=== PATIENT | male | born 1950 | race American Indian/Alaskan Native ===

== ENCOUNTER 2016-06-26 11:57 | Emergency (ER) | payer MEDICAID ==
--- NOTE | 2016-06-26 13:46 | Emergency Department Report ---
ED Fall HPI - General Chief Complaint: Extremity Injury, Upper Stated Complaint: FELL OFF LADDER Time Seen by Provider: 06/26/16 13:18 Source: patient Mode of arrival: Wheelchair - History of Present Illness Initial Comments: Patient states he fell off a ladder 1 week ago and still having pain in bilateral hips and right shoulder. Patient denies loss of consciousness, dizziness, blurred vision, headache, paresthesia, nausea vomiting. Patient also relates he has been ambulatory the entire week and drove himself here today. Complaint: fall -: Sudden Place Fall Occurred: home Loss of Consciousness: none Prolonged Down Time?: no Symptoms Prior to Fall: none Location: buttocks Location - Extremities: Left: Thigh, Right: Shoulder, Thigh - Related Data Previous Rx's Medication Instructions Recorded Last Taken Type Famotidine [Pepcid] 20 mg PO QDAY #30 tablet 12/28/13 Unknown Rx Levofloxacin [Levaquin TAB] 500 mg PO Q24H #10 tablet 02/08/14 Unknown Rx Loratadine [Claritin] 10 mg PO QDAY #10 tablet 02/08/14 Unknown Rx oxyCODONE /ACETAMINOPHEN [Percocet 1 tab PO Q6H PRN #20 tablet 02/08/14 Unknown Rx 5/325 mg] Albuterol Sulfate [Ventolin HFA] 2 puff IH Q4H PRN #1 hfa.aer.ad 02/24/15 Unknown Rx Bacitracin Zinc Oint 1 applicatio TP TID #1 tube 02/24/15 Unknown Rx Codeine (Nf) 30 mg PO Q4H PRN #15 tablet 06/26/16 Unknown Rx Allergies Allergy/AdvReac Type Severity Reaction Status Date / Time Sulfa (Sulfonamide AdvReac Hives Verified 02/06/14 21:49 Antibiotics) ED Review of Systems ROS: Stated complaint: FELL OFF LADDER Other details as noted in HPI Constitutional: denies: chills, fever Eyes: denies: eye pain, eye discharge, vision change ENT: denies: ear pain, throat pain Respiratory: denies: cough, shortness of breath, wheezing Cardiovascular: denies: chest pain, palpitations Gastrointestinal: denies: abdominal pain, nausea, vomiting Musculoskeletal: arthralgia Skin: denies: rash, lesions Neurological: denies: headache, numbness, paresthesias, confusion, abnormal gait , vertigo ED Past Medical Hx - Past Medical History Additional medical history: "heart valve", various veins - Surgical History Additional Surgical History: angioplasty - Social History Smoking Status: Current Every Day Smoker Substance Use Type: Alcohol - Medications Home Medications: Home Medications Medication Instructions Recorded Confirmed Last Taken Type Famotidine [Pepcid] 20 mg PO QDAY #30 tablet 12/28/13 02/07/14 Unknown Rx Levofloxacin [Levaquin TAB] 500 mg PO Q24H #10 tablet 02/08/14 Unknown Rx Loratadine [Claritin] 10 mg PO QDAY #10 tablet 02/08/14 Unknown Rx oxyCODONE /ACETAMINOPHEN [Percocet 1 tab PO Q6H PRN #20 tablet 02/08/14 Unknown Rx 5/325 mg] Albuterol Sulfate [Ventolin HFA] 2 puff IH Q4H PRN #1 hfa.aer.ad 02/24/15 Unknown Rx Bacitracin Zinc Oint 1 applicatio TP TID #1 tube 02/24/15 Unknown Rx Codeine (Nf) 30 mg PO Q4H PRN #15 tablet 06/26/16 Unknown Rx ED Physical Exam - General Limitations: Physical Limitation General appearance: alert, in no apparent distress - Head Head exam: Present: atraumatic, normocephalic - Eye Eye exam: Present: normal appearance, PERRL, EOMI - ENT ENT exam: Present: mucous membranes moist - Neck Neck exam: Present: normal inspection, full ROM. Absent: tenderness, meningismus - Respiratory Respiratory exam: Absent: respiratory distress - Cardiovascular Cardiovascular Exam: Present: regular rate - GI/Abdominal GI/Abdominal exam: Present: soft. Absent: distended, tenderness, guarding, rebound, rigid - Expanded Upper Extremity Exam Right Shoulder Exam: Present: full ROM, tenderness. Absent: swelling Neurosensory exam: Present: 2-point discrimination Vascular: Present: normal capillary refill, radial pulse (strong). Absent: vascular compromise, pulse deficit brachial art - Expanded Lower Extremity Exam Left Hip exam: Present: full ROM, tenderness, pelvic stability. Absent: swelling, ecchymosis, deformity, crepidus, dislocation, external rotation, internal rotation, shortening Right Hip exam: Present: full ROM, tenderness, pelvic stability (stable). Absent: swelling, ecchymosis, deformity, crepidus, dislocation, external rotation, internal rotation, shortening Ankle exam: Present: normal inspection. Absent: swelling Neuro vascular tendon exam: Absent: pulse deficit, motor deficit, sensory deficit, pallor, decreased fine/light touch, foot drop Gait: Positive: antalgic - Neurological Exam Neurological exam: Present: alert, oriented X3, normal gait. Absent: altered ED Course Vital Signs 06/26/16 06/26/16 12:09 13:33 Temperature 98 F 98.5 F Pulse Rate 75 75 Respiratory 18 12 Rate Blood Pressure 120/67 Blood Pressure 114/70 [Left] O2 Sat by Pulse 100 97 Oximetry ED Medical Decision Making - Radiology Data Radiology results: pending Critical care attestation.: If time is entered above; I have spent that time in minutes in the direct care of this critically ill patient, excluding procedure time. ED Disposition Clinical Impression: Contusion, hip and thigh, Contusion of shoulder, right Disposition: DISCHARGED TO HOME OR SELFCARE Is pt being admited?: No Does the pt Need Aspirin: No Condition: Stable Instructions: Contusion in Adults (ED), Hip Sprain (ED) Prescriptions: Codeine (Nf) 30 mg PO Q4H PRN #15 tablet PRN Reason: Pain Referrals: PRIMARY CARE, [Primary Care Provider] - 3-5 Days JOHN COUGHLIN MD [Staff Physician] - 3-5 Days
[2016-06-26] MEDS ORDERED: NORCO 5/325 PO ONE (15:22)
--- NOTE | 2016-06-26 16:11 | XRay Report ---
FINAL REPORT EXAM: XR HIPS BILAT 2V W/PELVIS HISTORY: fall with bilateral hip pain TECHNIQUE: AP view of the pelvis and a single coned-down view of each hip. PRIORS: None. FINDINGS: No evidence for acute fracture or dislocation is seen. Joint spaces are maintained. The soft tissues are unremarkable. Bony mineralization is normal. IMPRESSION: No acute soft tissue or bony abnormality noted in the bilateral hips.
--- NOTE | 2016-06-26 16:14 | XRay Report ---
FINAL REPORT EXAM: XR SHOULDER 2 RT HISTORY: fall with pain in the right shoulder TECHNIQUE: AP, Y, and oblique views of the right shoulder PRIORS: None. FINDINGS: There is no evidence of acute fracture or dislocation. Joint spaces are maintained and bony mineralization is normal. Soft tissues are unremarkable. Small spur off the inferior aspect of the acromioclavicular joint is seen. IMPRESSION: No acute abnormality identified in the right shoulder.
[2016-06-26 17:12] VITALS: BP 116/74
== END 2016-06-26 15:32 | disposition home or self-care (01) ==
LOC: ED 11:57
DX: S70.02XA Contusion of left hip, initial encounter (principal); S70.01XA Contusion of right hip, initial encounter; S70.10XA Contusion of unspecified thigh, initial encounter; S40.011A Contusion of right shoulder, initial encounter; W11.XXXA Fall on and from ladder, initial encounter; Y93.9 Activity, unspecified; Y92.9 Unspecified place or not applicable; Y99.9 Unspecified external cause status; F17.200 Nicotine dependence, unspecified, uncomplicated
CPT/HCPCS: 73521

== ENCOUNTER 2016-08-22 13:10 | Emergency (ER) | payer MEDICAID ==
[2016-08-22 13:47] VITALS: BP 113/72
--- NOTE | 2016-08-22 15:23 | Emergency Department Report ---
ED General Adult HPI - General Chief complaint: Pain General Stated complaint: BODY PAINS Time Seen by Provider: 08/22/16 15:22 Source: patient Mode of arrival: Ambulatory Limitations: No Limitations - History of Present Illness Initial comments: pt complaining of chronic bilateral hip and shoulder pain. Patient states his been going on for years and has gotten a lot worse in the past couple of months. Patient denies fever, chills, chest pain, shortness of breath, or syncope. -: Gradual, month(s) Location: upper extremity, lower extremity Severity scale (0 -10): 5 Improves with: none Worsens with: movement Associated Symptoms: denies other symptoms. denies: chest pain, cough, diaphoresis, fever/chills, malaise, nausea/vomiting, rash - Related Data Previous Rx's Medication Instructions Recorded Last Taken Type Famotidine [Pepcid] 20 mg PO QDAY #30 tablet 12/28/13 Unknown Rx Levofloxacin [Levaquin TAB] 500 mg PO Q24H #10 tablet 02/08/14 Unknown Rx Loratadine [Claritin] 10 mg PO QDAY #10 tablet 02/08/14 Unknown Rx oxyCODONE /ACETAMINOPHEN [Percocet 1 tab PO Q6H PRN #20 tablet 02/08/14 Unknown Rx 5/325 mg] Albuterol Sulfate [Ventolin HFA] 2 puff IH Q4H PRN #1 hfa.aer.ad 02/24/15 Unknown Rx Bacitracin Zinc Oint 1 applicatio TP TID #1 tube 02/24/15 Unknown Rx Codeine (Nf) 30 mg PO Q4H PRN #15 tablet 06/26/16 Unknown Rx Prednisone [predniSONE 10 mg 10 mg PO .TAPER #1 tab.ds.pk 08/22/16 Unknown Rx (6-Day Pack, 21 Tabs)] Allergies Allergy/AdvReac Type Severity Reaction Status Date / Time Sulfa (Sulfonamide AdvReac Hives Verified 02/06/14 21:49 Antibiotics) ED Review of Systems ROS: Stated complaint: BODY PAINS Other details as noted in HPI Constitutional: see HPI. denies: chills, fever, malaise Eyes: eye pain, vision change ENT: denies: throat pain Respiratory: denies: cough, orthopnea, shortness of breath, SOB with exertion, SOB at rest, wheezing Cardiovascular: denies: chest pain, palpitations, dyspnea on exertion, orthopnea , edema, syncope Gastrointestinal: denies: abdominal pain, nausea, vomiting, diarrhea, constipation Musculoskeletal: back pain, arthralgia, myalgia. denies: joint swelling Skin: denies: rash, lesions Neurological: denies: headache, weakness, numbness, paresthesias, confusion, abnormal gait, vertigo ED Past Medical Hx - Past Medical History Previous Medical History?: Yes Additional medical history: "heart valve", various veins, bodyaches, CAD - Surgical History Past Surgical History?: Yes Additional Surgical History: angioplasty - Social History Smoking Status: Current Every Day Smoker Substance Use Type: Alcohol, Prescribed - Medications Home Medications: Home Medications Medication Instructions Recorded Confirmed Last Taken Type Famotidine [Pepcid] 20 mg PO QDAY #30 tablet 12/28/13 02/07/14 Unknown Rx Levofloxacin [Levaquin TAB] 500 mg PO Q24H #10 tablet 02/08/14 Unknown Rx Loratadine [Claritin] 10 mg PO QDAY #10 tablet 02/08/14 Unknown Rx oxyCODONE /ACETAMINOPHEN [Percocet 1 tab PO Q6H PRN #20 tablet 02/08/14 Unknown Rx 5/325 mg] Albuterol Sulfate [Ventolin HFA] 2 puff IH Q4H PRN #1 hfa.aer.ad 02/24/15 Unknown Rx Bacitracin Zinc Oint 1 applicatio TP TID #1 tube 02/24/15 Unknown Rx Codeine (Nf) 30 mg PO Q4H PRN #15 tablet 06/26/16 Unknown Rx Prednisone [predniSONE 10 mg 10 mg PO .TAPER #1 tab.ds.pk 08/22/16 Unknown Rx (6-Day Pack, 21 Tabs)] ED Physical Exam - General Limitations: No Limitations General appearance: alert, in no apparent distress - Eye Eye exam: Present: normal appearance, PERRL, EOMI - ENT ENT exam: Present: normal exam, mucous membranes dry - Neck Neck exam: Present: normal inspection, full ROM. Absent: tenderness, meningismus, lymphadenopathy - Respiratory Respiratory exam: Present: normal lung sounds bilaterally. Absent: respiratory distress - Cardiovascular Cardiovascular Exam: Present: regular rate - GI/Abdominal GI/Abdominal exam: Present: soft. Absent: distended, tenderness, guarding - Extremities Exam Extremities exam: Present: tenderness, normal capillary refill, other (she is moving all extremities 4 with good neurovascular motor distal to area of pain, brisk cap refill in all extremities equal pulses in all extremities. No warmth , swelling, erythema, or deformity noted.). Absent: pedal edema, joint swelling , calf tenderness - Back Exam Back exam: Present: vertebral tenderness. Absent: CVA tenderness (R), CVA tenderness (L), paraspinal tenderness - Neurological Exam Neurological exam: Present: alert, oriented X3, CN II-XII intact - Skin Skin exam: Present: warm, dry, intact ED Course Vital Signs 08/22/16 13:42 Temperature 98.4 F Pulse Rate 87 Respiratory 18 Rate Blood Pressure 113/72 O2 Sat by Pulse 97 Oximetry - Reevaluation(s) Reevaluation #1: 08/22/16 15:45 Patient still resting comfortably normotensive normal heart rate. Discussed at length the patient that he is going to need follow-up outside of the ER there are various types of arthritis could be causing his polyarthralgia. Patient agreed with me and states he is just gotten a doctor and has an appointment to follow-up already. Critical care attestation.: If time is entered above; I have spent that time in minutes in the direct care of this critically ill patient, excluding procedure time. ED Disposition Clinical Impression: Polyarthralgia Disposition: DISCHARGED TO HOME OR SELFCARE Is pt being admited?: No Condition: Stable Instructions: Arthralgia (ED) Prescriptions: Prednisone [predniSONE 10 mg (6-Day Pack, 21 Tabs)] 10 mg PO .TAPER #1 tab.zackery Referrals: PRIMARY CARE, [Primary Care Provider] - 3-5 Days
[2016-08-22] MEDS ORDERED: TORADOL IM ONE (15:38)
== END 2016-08-22 16:01 | disposition home or self-care (01) ==
LOC: ED 13:10
DX: M25.551 Pain in right hip (principal); M25.552 Pain in left hip; M25.511 Pain in right shoulder; M25.512 Pain in left shoulder; F17.200 Nicotine dependence, unspecified, uncomplicated
CPT/HCPCS: 96372; 99282; J1885

== ENCOUNTER 2016-08-30 15:25 | Emergency (ER) | payer MEDICARE ==
[2016-08-30 16:13] LABS: Hematocrit 43.3 % (35.5-45.6); Hemoglobin 14.3 gm/dl (11.8-15.2); Mean Corpuscular HGB Conc 33 % (32-34); Mean Corpuscular Hemoglobin 32 pg (28-32); Mean Corpuscular Volume 96 fl (84-94); Platelet Count 115 K/mm3 (140-440); Red Blood Count 4.52 M/mm3 (3.65-5.03); Red Cell Distribution Width 13.6 % (13.2-15.2); White Blood Count 4.1 K/mm3 (4.5-11.0)
[2016-08-30 16:27] LABS: Anion Gap 15 mmol/L; Blood Urea Nitrogen 10 mg/dL (9-20); Calcium 9.1 mg/dL (8.4-10.2); Carbon Dioxide 27 mmol/L (22-30); Chloride 101.3 mmol/L (98-107); Glucose 101 mg/dL (75-100); Potassium 3.7 mmol/L (3.6-5.0); Sodium 140 mmol/L (137-145)
[2016-08-30 16:48] LABS: Basophils % (Manual) 0 % (0.0-1.8); Blastocytes % (Manual) 0 %
[2016-08-30 16:50] LABS: Diff Status Complete; Platelet Estimate Appears Decreased; RBC Morphology Normal
--- NOTE | 2016-08-30 23:09 | Emergency Department Report ---
ED Chest Pain HPI - General Chief Complaint: Chest Pain Stated Complaint: LFT SIDE NUMBNESS Time Seen by Provider: 08/30/16 22:57 Source: patient Mode of arrival: Ambulatory Limitations: No Limitations - History of Present Illness Initial Comments: This is a pleasant 66-year-old gentleman who reports 2 day history of left arm pain. He states he feels that his arm is going to fall off. He states it comes in for approximately since. He will have approximately 2-3 minute period of time where he has significant tenderness down the left arm and I will resolve. He states his veins pop out when this is occurring as well. He does get some radiation to his left chest as well. He denies any neck pain associated with this. Denies any shortness of breath associated with it. He states in general he's had a little cough and feels like he is trying to clear some phlegm from the left upper aspect of his chest however. He denies any fevers. He does indicate to trauma approximately one month ago to his right arm. States he's fairly well recovered from that. Reports he's been very active at home this last week doing a lot of activities over his head. States that in general he's felt well otherwise. Severity scale (0 -10): 2 - Related Data Previous Rx's Medication Instructions Recorded Last Taken Type Famotidine [Pepcid] 20 mg PO QDAY #30 tablet 12/28/13 Unknown Rx Levofloxacin [Levaquin TAB] 500 mg PO Q24H #10 tablet 02/08/14 Unknown Rx Loratadine [Claritin] 10 mg PO QDAY #10 tablet 02/08/14 Unknown Rx oxyCODONE /ACETAMINOPHEN [Percocet 1 tab PO Q6H PRN #20 tablet 02/08/14 Unknown Rx 5/325 mg] Albuterol Sulfate [Ventolin HFA] 2 puff IH Q4H PRN #1 hfa.aer.ad 02/24/15 Unknown Rx Bacitracin Zinc Oint 1 applicatio TP TID #1 tube 02/24/15 Unknown Rx Codeine (Nf) 30 mg PO Q4H PRN #15 tablet 06/26/16 Unknown Rx Prednisone [predniSONE 10 mg 10 mg PO .TAPER #1 tab.ds.pk 08/22/16 Unknown Rx (6-Day Pack, 21 Tabs)] Naproxen [Naprosyn] 375 mg PO BID PRN #30 tablet 08/30/16 Unknown Rx Allergies Allergy/AdvReac Type Severity Reaction Status Date / Time Sulfa (Sulfonamide AdvReac Hives Verified 02/06/14 21:49 Antibiotics) MIGUELITO score - Miguelito Score Age > 65: (0) No Aspirin use within the Past 7 Days: (0) No 3 or more CAD Risk Factors: (0) No 2 or more Angina events in past 24 hrs: (0) No Known CAD with more than 50% Stenosis: (0) No Elevated Cardiac Markers: (0) No ST Deviation Greater than 0.5mm: (0) No MIGUELITO Score: 0 ED Review of Systems ROS: Stated complaint: LFT SIDE NUMBNESS Other details as noted in HPI Comment: All other systems reviewed and negative Constitutional: denies: chills, fever Eyes: denies: eye pain, eye discharge, vision change ENT: denies: ear pain, throat pain Respiratory: cough. denies: shortness of breath, wheezing Cardiovascular: denies: chest pain, palpitations Endocrine: no symptoms reported Gastrointestinal: denies: abdominal pain, nausea, diarrhea Genitourinary: denies: urgency, dysuria Musculoskeletal: arthralgia. denies: back pain, joint swelling Skin: denies: rash, lesions Neurological: denies: headache, weakness, paresthesias Psychiatric: denies: anxiety, depression Hematological/Lymphatic: denies: easy bleeding, easy bruising ED Past Medical Hx - Past Medical History Additional medical history: "heart valve", various veins, bodyaches, CAD - Surgical History Additional Surgical History: angioplasty - Social History Smoking Status: Current Every Day Smoker Substance Use Type: None - Medications Home Medications: Home Medications Medication Instructions Recorded Confirmed Last Taken Type Famotidine [Pepcid] 20 mg PO QDAY #30 tablet 12/28/13 02/07/14 Unknown Rx Levofloxacin [Levaquin TAB] 500 mg PO Q24H #10 tablet 02/08/14 Unknown Rx Loratadine [Claritin] 10 mg PO QDAY #10 tablet 02/08/14 Unknown Rx oxyCODONE /ACETAMINOPHEN [Percocet 1 tab PO Q6H PRN #20 tablet 02/08/14 Unknown Rx 5/325 mg] Albuterol Sulfate [Ventolin HFA] 2 puff IH Q4H PRN #1 hfa.aer.ad 02/24/15 Unknown Rx Bacitracin Zinc Oint 1 applicatio TP TID #1 tube 02/24/15 Unknown Rx Codeine (Nf) 30 mg PO Q4H PRN #15 tablet 06/26/16 Unknown Rx Prednisone [predniSONE 10 mg 10 mg PO .TAPER #1 tab.ds.pk 08/22/16 Unknown Rx (6-Day Pack, 21 Tabs)] Naproxen [Naprosyn] 375 mg PO BID PRN #30 tablet 08/30/16 Unknown Rx ED Physical Exam - General Limitations: No Limitations General appearance: alert, in no apparent distress - Head Head exam: Present: atraumatic, normocephalic - Eye Eye exam: Present: normal appearance, EOMI. Absent: scleral icterus - ENT ENT exam: Present: normal exam, normal orophraynx, mucous membranes moist - Neck Neck exam: Present: normal inspection, full ROM. Absent: tenderness, lymphadenopathy - Respiratory Respiratory exam: Present: normal lung sounds bilaterally. Absent: respiratory distress, wheezes, rales - Cardiovascular Cardiovascular Exam: Present: regular rate, normal rhythm. Absent: systolic murmur, diastolic murmur, rubs, gallop - GI/Abdominal GI/Abdominal exam: Present: soft, normal bowel sounds. Absent: tenderness - Rectal Rectal exam: Present: deferred - Extremities Exam Extremities exam: Present: normal inspection, full ROM, normal capillary refill , other (intrinsic muscles of the hands with excellent strength noted bilaterally. Equal distal radial pulses bilaterally. No concerning findings noted on the upper extremities bilaterally.). Absent: tenderness, pedal edema - Back Exam Back exam: Present: normal inspection. Absent: tenderness, CVA tenderness (R), CVA tenderness (L), muscle spasm - Neurological Exam Neurological exam: Present: alert, oriented X3 - Psychiatric Psychiatric exam: Present: normal affect, normal mood - Skin Skin exam: Present: warm, dry, intact, normal color. Absent: rash ED Course Vital Signs 08/30/16 08/30/16 15:40 22:50 Temperature 98.7 F Pulse Rate 86 91 H Respiratory 18 18 Rate Blood Pressure 107/70 Blood Pressure 114/71 [Right] O2 Sat by Pulse 99 98 Oximetry - Reevaluation(s) Reevaluation #1: 08/30/16 22:59 EKG at 1531 with sinus rhythm at 83 bpm. Normal MO and QRS is noted. Normal axis is noted. There are Q waves septally otherwise unremarkable ECG. No acute ST elevation is appreciated. Reevaluation #2: 08/30/16 23:11 Unremarkable examination for me at this time. Patient has no pain at this time. He is not able to reproduce his pain on my able to reproduce it. His lab studies are noted. They are unremarkable in general as well. ECG is unremarkable. There is some concern in my mind for for cardiac etiology though this is very atypical presentation. We'll obtain chest x-ray and continue on the monitor for a period of time. Reevaluation #3: 08/30/16 23:43 Chest x-ray was unremarkable. I'm still not able to elicit the patient's pain. I'm not entirely clear what the etiology is. I do not suspect cardiac. His felt his arthralgia type of condition. I did give reassurance at this time. Will trial on anti-inflammatories. ED Medical Decision Making - Lab Data Result diagrams: 08/30/16 15:57 08/30/16 15:57 - Radiology Data interpreted by me: negative Critical care attestation.: If time is entered above; I have spent that time in minutes in the direct care of this critically ill patient, excluding procedure time. ED Disposition Clinical Impression: Arm pain, left Disposition: DISCHARGED TO HOME OR SELFCARE Is pt being admited?: No Does the pt Need Aspirin: No Condition: Stable Instructions: Arthralgia (ED) Additional Instructions: Do gentle range of motion activities and exercises daily. Follow-up with the primary care doctor for continued management and care. No strenuous activities. Prescriptions: Naproxen [Naprosyn] 375 mg PO BID PRN #30 tablet PRN Reason: Pain Referrals: [facility] [Provider Group] - 3-5 Days [facility] [Provider Group] - 3-5 Days Time of Disposition: 23:43
[2016-08-31 00:03] VITALS: BP 114/69
--- NOTE | 2016-08-31 08:50 | XRay Report ---
PA and lateral chest: Cough. There is left pleural scarring with tenting of the lateral hemidiaphragm. The lungs are clear. The mediastinal contour is unremarkable. There is degenerative spondylosis of the mid thoracic spine. There no significant changes compared to February 24, 2015. Impression: Left pleural scarring. No acute findings identified.
== END 2016-08-30 23:55 | disposition home or self-care (01) ==
LOC: ED 15:25
DX: M79.602 Pain in left arm (principal); F17.200 Nicotine dependence, unspecified, uncomplicated; Z88.2 Allergy status to sulfonamides
CPT/HCPCS: 36415; 71020; 80048; 84484; 85007; 85025; 93005; 93010; 99285

== ENCOUNTER 2017-02-22 13:02 | Emergency (ER) | payer MEDICARE, MEDICAID ==
--- NOTE | 2017-02-22 13:41 | Emergency Department Report ---
Chief Complaint: Abdominal Pain Stated Complaint: ABD PAIN Time Seen by Provider: 02/22/17 13:38 - HPI History of Present Illness: PT c/o R groin swelling x 1 week. PT states he is also constipated - ROS Review of Systems: + nausea - vomiting + constipation - Exam Vital Signs: Vital Signs 02/22/17 13:33 Temperature 98.4 F Pulse Rate 83 Respiratory 16 Rate Blood Pressure 121/61 [Right] O2 Sat by Pulse 99 Oximetry Physical Exam: PT looks well, non toxic steady gait abd soft and not tender MSE screening note: Focused history and physical exam performed. Due to findings the following was ordered: labs and us ED Disposition for MSE Condition: Stable
--- NOTE | 2017-02-22 14:33 | Ultrasound Report ---
Limited L. sound of the right groin. History: Pain and lump in right groin. Findings: At the site of the lump in the right groin, there is extensive peristalsis confirming that this represents a hernia.
[2017-02-22 14:53] LABS: Bilirubin,Urine NEG (Negative); Blood,Urine NEG (Negative); Ketones,Urine NEG (Negative); Leukocyte Esterase,Urine NEG (Negative); Mucus,Urine FEW /HPF; Nitrite,Urine NEG (Negative); Protein,Urine <15 mg/dL mg/dL (Negative); WBC,Urine < 1.0 /HPF (0.0-6.0)
[2017-02-22 21:15] VITALS: BP 103/65
[2017-02-22 21:43] LABS: Hematocrit 40.7 % (35.5-45.6); Hemoglobin 13.6 gm/dl (11.8-15.2); Mean Corpuscular HGB Conc 33 % (32-34); Mean Corpuscular Hemoglobin 32 pg (28-32); Mean Corpuscular Volume 96 fl (84-94); Platelet Count 131 K/mm3 (140-440); Red Blood Count 4.24 M/mm3 (3.65-5.03); Red Cell Distribution Width 12.6 % (13.2-15.2); White Blood Count 5.8 K/mm3 (4.5-11.0)
[2017-02-22 22:01] LABS: Alanine Aminotransferase 74 units/L (7-56); Alkaline Phosphatase 51 units/L (35-129); Anion Gap 17 mmol/L; BUN/Creatinine Ratio 15; Blood Urea Nitrogen 12 mg/dL (9-20); Calcium 9.3 mg/dL (8.4-10.2); Carbon Dioxide 28 mmol/L (22-30); Chloride 101.6 mmol/L (98-107); Glucose 91 mg/dL (75-100); Potassium 4.1 mmol/L (3.6-5.0); Sodium 142 mmol/L (137-145); Total Protein 8.1 g/dL (6.3-8.2)
[2017-02-22 22:25] LABS: Blastocytes % (Manual) 0 %
[2017-02-22 22:26] LABS: Diff Status Complete; Large Platelets 1+; Platelet Estimate Consistent w Auto; RBC Morphology Normal
== END 2017-02-22 21:50 | disposition home or self-care (01) ==
LOC: ED 13:02
DX: R10.9 Unspecified abdominal pain (principal); Z53.21 Procedure and treatment not carried out due to patient leaving prior to being seen by health care provider
CPT/HCPCS: 36415; 80053; 81001; 85007; 85025

== ENCOUNTER 2017-02-23 10:41 | Emergency (ER) | payer MEDICARE, MEDICAID ==
[2017-02-23] MEDS ORDERED: TYLENOL PO ONE (14:38)
--- NOTE | 2017-02-23 14:50 | XRay Report ---
RIGHT SHOULDER 3 views: History: Right shoulder pain. Mild osteoarthritic changes are identified which appear relatively stable since 06/26/16. No fracture, bone lesion or dislocation. The soft tissues are unremarkable. IMPRESSION: Mild osteoarthritic changes.
--- NOTE | 2017-02-23 15:17 | Emergency Department Report ---
ED Male HPI - General Chief complaint: Skin/Abscess/Foreign Body Stated complaint: ABSCESS ON GROIN AREA, RIGHT SHOULDER PAIN Time Seen by Provider: 02/23/17 14:13 Source: patient Mode of arrival: Ambulatory Limitations: No Limitations - History of Present Illness Initial comments: 56-year-old male past medical history arthritis right shoulder presents with complaint of acute on chronic pain. Patient also states for approximately 2 weeks he has noticed a lump above his penis in his right side groin. She denies nausea vomiting fever or chills is awake alert and oriented 3 not in acute distress. Denies any difficulty defecating or urinating. No urinary symptoms reported by the patient. Denies any significant testicular pain or swelling. Does state that the lump changes in size and is slightly worse if he stands for long periods of time. MD Complaint: hernia (right inguinal hernia) Onset/Timin -: week(s) Location: right inguinal region (right inguinal hernia, reducible) Radiation: none Severity: moderate Quality: aching Consistency: constant Improves with: none Worsens with: none - Related Data Previous Rx's Medication Instructions Recorded Last Taken Type Famotidine [Pepcid] 20 mg PO QDAY #30 tablet 12/28/13 Unknown Rx Levofloxacin [Levaquin TAB] 500 mg PO Q24H #10 tablet 02/08/14 Unknown Rx Loratadine [Claritin] 10 mg PO QDAY #10 tablet 02/08/14 Unknown Rx oxyCODONE /ACETAMINOPHEN [Percocet 1 tab PO Q6H PRN #20 tablet 02/08/14 Unknown Rx 5/325 mg] Albuterol Sulfate [Ventolin HFA] 2 puff IH Q4H PRN #1 hfa.aer.ad 02/24/15 Unknown Rx Bacitracin Zinc Oint 1 applicatio TP TID #1 tube 02/24/15 Unknown Rx Codeine (Nf) 30 mg PO Q4H PRN #15 tablet 06/26/16 Unknown Rx Prednisone [predniSONE 10 mg 10 mg PO .TAPER #1 tab.ds.pk 08/22/16 Unknown Rx (6-Day Pack, 21 Tabs)] Naproxen [Naprosyn] 375 mg PO BID PRN #30 tablet 08/30/16 Unknown Rx Docusate Sodium [Colace CAP] 100 mg PO BID PRN #30 capsule 02/23/17 Unknown Rx Naproxen [Naprosyn TAB] 500 mg PO BID PRN #30 tablet 02/23/17 Unknown Rx Allergies Allergy/AdvReac Type Severity Reaction Status Date / Time Sulfa (Sulfonamide AdvReac Hives Verified 02/06/14 21:49 Antibiotics) ED Review of Systems ROS: Stated complaint: ABSCESS ON GROIN AREA, RIGHT SHOULDER PAIN Other details as noted in HPI Constitutional: denies: chills, fever Eyes: denies: eye pain, eye discharge, vision change ENT: denies: ear pain, throat pain Respiratory: denies: cough, shortness of breath, wheezing Cardiovascular: denies: chest pain, palpitations Endocrine: no symptoms reported Gastrointestinal: denies: abdominal pain, nausea, diarrhea Genitourinary: as per HPI (right inguinal soft mass). denies: urgency, dysuria Musculoskeletal: denies: back pain, joint swelling, arthralgia Skin: denies: rash, lesions Neurological: denies: headache, weakness, paresthesias Psychiatric: denies: anxiety, depression Hematological/Lymphatic: denies: easy bleeding, easy bruising ED Past Medical Hx - Past Medical History Previous Medical History?: Yes Additional medical history: "heart valve", various veins, bodyaches, CAD - Surgical History Past Surgical History?: Yes Additional Surgical History: angioplasty - Social History Smoking Status: Current Every Day Smoker Substance Use Type: Alcohol, Marijuana, Prescribed - Medications Home Medications: Home Medications Medication Instructions Recorded Confirmed Last Taken Type Famotidine [Pepcid] 20 mg PO QDAY #30 tablet 12/28/13 02/07/14 Unknown Rx Levofloxacin [Levaquin TAB] 500 mg PO Q24H #10 tablet 02/08/14 Unknown Rx Loratadine [Claritin] 10 mg PO QDAY #10 tablet 02/08/14 Unknown Rx oxyCODONE /ACETAMINOPHEN [Percocet 1 tab PO Q6H PRN #20 tablet 02/08/14 Unknown Rx 5/325 mg] Albuterol Sulfate [Ventolin HFA] 2 puff IH Q4H PRN #1 hfa.aer.ad 02/24/15 Unknown Rx Bacitracin Zinc Oint 1 applicatio TP TID #1 tube 02/24/15 Unknown Rx Codeine (Nf) 30 mg PO Q4H PRN #15 tablet 06/26/16 Unknown Rx Prednisone [predniSONE 10 mg 10 mg PO .TAPER #1 tab.ds.pk 08/22/16 Unknown Rx (6-Day Pack, 21 Tabs)] Naproxen [Naprosyn] 375 mg PO BID PRN #30 tablet 08/30/16 Unknown Rx Docusate Sodium [Colace CAP] 100 mg PO BID PRN #30 capsule 02/23/17 Unknown Rx Naproxen [Naprosyn TAB] 500 mg PO BID PRN #30 tablet 02/23/17 Unknown Rx ED Physical Exam - General Limitations: No Limitations General appearance: alert, in no apparent distress - Head Head exam: Present: atraumatic, normocephalic - Eye Eye exam: Present: normal appearance, PERRL, EOMI - ENT ENT exam: Present: mucous membranes moist - Neck Neck exam: Present: normal inspection, full ROM - Respiratory Respiratory exam: Present: normal lung sounds bilaterally. Absent: respiratory distress - Cardiovascular Cardiovascular Exam: Present: regular rate, normal rhythm. Absent: systolic murmur, diastolic murmur, rubs, gallop - GI/Abdominal GI/Abdominal exam: Present: soft, normal bowel sounds - Rectal Rectal exam: Present: deferred - External exam: Present: swelling (reducible right inguinal hernia on clinical exam no new skin scrotal enlargement however patient does have positive right inguinal ring test) - Extremities Exam Extremities exam: Present: normal inspection - Expanded Upper Extremity Exam Right Shoulder Exam: Present: normal inspection, full ROM (shoulder abduction and abduction and internal and external rotation intact flexion and extension intact ) Upper Arm exam: Present: normal inspection, full ROM Elbow exam: Present: normal inspection, full ROM Forearm Wrist exam: Present: normal inspection, full ROM Neuro motor exam: Present: wrist extension intact, thumb opposition intact, thumb IP flexion intact, thumb adduction intact, fingers 2-5 abduction intact, other - Back Exam Back exam: Present: normal inspection - Neurological Exam Neurological exam: Present: alert, oriented X3, CN II-XII intact, normal gait - Psychiatric Psychiatric exam: Present: normal affect, normal mood - Skin Skin exam: Present: warm, dry, intact, normal color. Absent: rash ED Course Vital Signs 02/23/17 11:58 Temperature 98.4 F Pulse Rate 78 Respiratory 20 Rate Blood Pressure 104/61 O2 Sat by Pulse 96 Oximetry ED Medical Decision Making - Medical Decision Making A/P: Right sided inguinal hernia, reducible, right shoulder osteoarthritis 1-I inform the patient that he has a reducible hernia and should follow up with outpatient surgeon to have surgery for hernia correction. Patient does not have any current clinical signs of a strangulated and/or incarcerated hernia is moving his bowels is no significant tenderness on exam and inguinal hernia is reducible. I recommended that he eat a high-fiber foods in order to mitigate the bowel symptoms 2-naproxen when necessary for right shoulder pain. Patient has osteoarthritis of his right shoulder, outpatient orthopedic follow-up 3-follow up with primary care outpatient general surgery and orthopedics 4-I gave patient precautions on incarcerated/angulated hernia symptoms and advised him to return to the ED if he develops fever chills intractable nausea and vomiting severe abdominal pain if the hernia is not reducible or if it expands rapidly or if his groin become severely discolored or erythematous. Patient stated he understood my instructions and would follow up with outpatient surgery accordingly 5- labs including urinalysis CBC and BMP done yesterday are unremarkable Critical care attestation.: If time is entered above; I have spent that time in minutes in the direct care of this critically ill patient, excluding procedure time. ED Disposition Clinical Impression: Right inguinal hernia, Reducible right inguinal hernia Osteoarthritis of right shoulder Qualifiers: Osteoarthritis type: other secondary Qualified Code(s): M19.211 - Secondary osteoarthritis, right shoulder Disposition: TO HOME OR SELFCARE Is pt being admited?: No Does the pt Need Aspirin: No Condition: Stable Instructions: Inguinal Hernia (ED), Osteoarthritis (ED) Prescriptions: Docusate Sodium [Colace CAP] 100 mg PO BID PRN #30 capsule PRN Reason: Constipation Naproxen [Naprosyn TAB] 500 mg PO BID PRN #30 tablet PRN Reason: Pain Referrals: BELINDA HO DO [Staff Physician] - 3-5 Days ÁNGELA FORRESTER MD [Staff Physician] - 3-5 Days Forms: Work/School Release Form(ED) Time of Disposition: 15:19
[2017-02-23 15:45] VITALS: BP 115/72
== END 2017-02-23 15:45 | disposition home or self-care (01) ==
LOC: ED 10:41
DX: K40.91 Unilateral inguinal hernia, without obstruction or gangrene, recurrent (principal); M13.811 Other specified arthritis, right shoulder; F17.200 Nicotine dependence, unspecified, uncomplicated; F12.10 Cannabis abuse, uncomplicated; Z88.2 Allergy status to sulfonamides
CPT/HCPCS: 99283

== ENCOUNTER 2017-04-26 07:36 | Outpatient (CLI) | payer MEDICARE ==
--- NOTE | 2017-04-26 09:10 | XRay Report ---
Chest 2 views. History: Arrhythmia. Findings: The heart and lungs reveal no acute findings or interval changes since March 17, 2017. The minimal pleural-parenchymal scarring is seen in the left lung base. Impression: No acute findings.
[2017-04-26] MEDS ORDERED: LEXISCAN IV ONE ×2 (09:30→09:36)
[2017-04-26 13:38] VITALS: BP 108/60
--- NOTE | 2017-05-14 00:12 | Treadmill Report ---
ORDERING PHYSICIAN: Black Dill. INDICATION: Chest pain. FINDINGS: This is a poor quality myocardial perfusion scan. There is evidence of a fixed anterior as well as a fixed inferior wall defect. The inferior wall defect is likely due to the overlapping high intensity uptake by the bowel and liver. The left ventricle is normal in size and systolic function. The left ventricular ejection fraction is measured at 69%. Normal wall motion and wall thickening is noted on gated imaging. CONCLUSION: 1. There is no scintigraphic evidence of myocardial ischemia. However, this is a poor quality myocardial perfusion scan limited by a high uptake noted in the adjacent bowel and liver. 2. There is a fixed anterior as well as inferior wall defect. 3. Clinical correlation is recommended. JOB# [id number] JAKE/BALDEV
== END 2017-04-26 07:37 | disposition home or self-care (01) ==
LOC: ECHO 07:36
PROVIDERS: ATTEND Nurse Practitioner
DX: Z12.11 Encounter for screening for malignant neoplasm of colon (principal); J98.4 Other disorders of lung; R94.31 Abnormal electrocardiogram [ECG] [EKG]
CPT/HCPCS: 71020; 78452; 93017; A9502; J2785

== ENCOUNTER 2017-06-10 05:56 | Day surgery (SDC) | payer MEDICARE ==
--- NOTE | 2017-06-10 08:37 | Anesthesia Consultation ---
Anesthesia Consult and Med Hx Date of service: 06/10/17 - Airway Anesthetic Teeth Evaluation: Poor, Dentures ROM Head & Neck: Adequate Mental/Hyoid Distance: Adequate Mallampati Class: Class II Intubation Access Assessment: Good - Pulmonary Exam CTA: Yes - Cardiac Exam Cardiac Exam: RRR - Pre-Operative Health Status ASA Pre-Surgery Classification: ASA2, ASA3 Proposed Anesthetic Plan: General - Pulmonary Hx Smoking: Yes (1/2 PACK A DAY SINCE 2001) Hx Sleep Apnea: Yes - Cardiovascular System Hx Coronary Artery Disease: Yes - Central Nervous System Hx Psychiatric Problems: No - Gastrointestinal Hx Gastroesophageal Reflux Disease: Yes - Hematic Hx Sickle Cell Disease: Yes (TRAIT) - Other Systems Hx Alcohol Use: Yes (OCCAS) Hx Substance Use: No (h/o cocaine abuse in past) Hx Cancer: No - Additional Comments Anesthesia Medical History Comments: Poor historian. Chronic pain secondary to arthritis. Takes pain meds. Was prescribed steroid taper dose in past( after a fall in November). unclear if he took it. Good exercise tolerance.
--- NOTE | 2017-06-10 08:39 | Anesthesia Day of Surgery ---
Anesthesia Day of Surgery - Day of Surgery Patient Examined: Yes Patient H&P Reviewed: Yes Patient is NPO: Yes
[2017-06-10] MEDS ORDERED: PERCOCET 5/325 PO PRN (08:40)
[2017-06-10] MEDS ORDERED: DILAUDID IV PRN (08:42)
[2017-06-10] MEDS ORDERED: PROAIR IH NR (08:45)
[2017-06-10] MEDS ORDERED: PEPCID IV NR (09:00)
[2017-06-10] MEDS ORDERED: NACL 0.9% 1000 ML 1,000 ML IV SCH (09:00)
[2017-06-10] MEDS ORDERED: DIPRIVAN 10 MG/ML IV ONE (09:02)
[2017-06-10] MEDS ORDERED: SUBLIMAZE ONE (09:06)
[2017-06-10] MEDS ORDERED: XYLOCAINE 1% 20 mL INFILTRATI ONE (09:10)
[2017-06-10] MEDS ORDERED: NACL 0.9% IR ONE (09:10)
[2017-06-10] MEDS ORDERED: MARCAINE 0.5% INFILTRATI ONE (09:10)
[2017-06-10] MEDS ORDERED: MARCAINE 0.5% 30 ML INFILTRATI ONE (09:19)
[2017-06-10] MEDS ORDERED: XYLOCAINE 1% 20 mL ONE (09:19)
[2017-06-10] MEDS ORDERED: ANCEF/STERILE WATER 2 GM/20 ML IV NR (10:00)
[2017-06-10] MEDS ORDERED: XYLOCAINE MPF 2% ONE (10:21)
[2017-06-10] MEDS ORDERED: ZEMURON IV ONE (10:22)
[2017-06-10] MEDS ORDERED: NEO SYNEPHRINE/NS Syringe(OR USE) IV ONE (10:22)
[2017-06-10] MEDS ORDERED: NEO SYNEPHRINE ONE (10:22)
[2017-06-10] MEDS ORDERED: NACL 0.9% 100 ML ONE (10:23)
[2017-06-10] MEDS ORDERED: NACL 0.9% 1000 ML 1,000 ML ONE (10:23)
[2017-06-10] MEDS ORDERED: ROBINUL ONE (11:25)
[2017-06-10] MEDS ORDERED: NEOSTIGMINE ONE (11:26)
--- NOTE | 2017-06-10 11:55 | Operative Report ---
Operative Report Operative Report: Operative Report: Date of operation: 06/10/17 Preoperative diagnosis: Right reducible inguinal hernia Postoperative diagnosis: Same as above Procedure performed: Laparoscopic right inguinal hernia repair with mesh Surgeon: Joan Cedeno DO Anesthesia: Gen. endotracheal anesthesia Findings: Large right indirect and small direct defect Estimated blood loss: Less than 10 mL Specimen: None Complications: None Disposition: Stable to PACU HPI an indication: Patient is a 66year-old male who presented to the office with complaints of pain and bulge in his right groin which was limiting his lifestyle. On physical exam, the patient had a reducible right inguinal hernia. The patient was set up for an elective laparoscopic right inguinal hernia repair mesh. Medical and cardiology clearance were obtained prior to surgery. All risks of surgery were discussed with the patient, all questions answered, and consent was signed and placed on the chart. Procedure in detail: The patient was identified in the preoperative area, taken back to the operating room and placed on the operating table in supine position. After anesthesia was induced a Cedeno catheter was sterilely placed by the circulating nurse. Both arms were tucked at the side with the appropriate padding. The abdomen was then prepped and draped in usual sterile fashion and a timeout was performed. Local anesthetic, a 50/50 mixture of 1% lidocaine and 0.25% Marcaine was injected into all skin incision sites. A horizontal incision was made to the left of the umbilicus using a 15 blade. Dissection was carried down through the skin and subcutaneous tissue using Bovie electrocautery until the anterior fascia was encountered. This was opened with the Bovie until muscle was visualized. The muscle was gently split in the direction of its fibers and the preperitoneal space entered. The preperitoneal space was bluntly developed with a gloved finger. Then the Spacemaker balloon was inserted into this layer and gently guided towards the pubic tubercle. Once in the correct position, the Spacemaker balloon was inflated under direct visualization using the laparoscopic camera. Once the space was dissected, the balloon was deflated and removed. A 12 mm balloon trocar was then placed into this layer and the space insufflated to 15 mmHg. 2 - 5 mm trocars were then placed under direct visualization in the midline, the first 3 fingerbreadths below the umbilicus and the second 3 fingerbreadths below that. Using the laparoscopic Kittner dissectors, the lateral space was developed. I then turned my attention medially and cleared the pubic tubercle of overlying fat and tissue. The cord was identified and the surrounding fat, peritoneum, and cremasteric muscles were gently from the cord structures. The patient had an indirect hernia with a large chronically incarcerated hernia sac as well as a small direct defect on this side. The cord structures were dissected free from surrounding tissue, peritoneum, and cremasteric muscle and the peritoneum reduced. The peritoneum was difficult to completely reduce secondary to scarring of the hernia sac. Once most of the hernia sac was reduced , clips were placed across the entire sac proximally and the sac transected distal to the clips. A tear in the peritoneum was approximated with clips. Hemostasis was ensured during the entirety of the dissection.A Large right Bard 3-D max mesh was introduced into the preperitoneal space. It was positioned appropriately with good coverage over all hernia spaces. It was tacked to the pubic tubercle and to the lateral abdominal wall using the pro- tack. The redundant peritoneum which was reduced was tacked loosely to the pubic tubercle. Hemostasis was once again ensured. 10cc of local anesthetic was infiltrated into the preperitoneal space through a trocar. The preperitoneal space was then desufflated slowly under direct visualization and the mesh was ensured to lay flat. The trocars were then removed. The fascia of the umbilical port was closed using interrupted 0 Vicryl stitches. All skin incisions were closed with 4-0 Monocryl subcuticular stitches and skin glue. At the end of the case, all sponge, instrument, sharp counts were correct 2. The patient's scrotum was palpated, there were 2 testicles present. Residual scrotal air was decompressed. The Cedeno catheter was removed. The patient was awoken from anesthesia, extubated, and he was taken to PACU in stable condition.
[2017-06-10] MEDS ORDERED: PROVENTIL IH ONE (11:58)
--- NOTE | 2017-06-10 12:00 | Short Stay Summary ---
Short Stay Documentation Date of service: 06/10/17 - History Principal diagnosis: reducible right inguinal hernia H&P: obtained from office - Allergies and Medications Current Medications: Allergies Sulfa (Sulfonamide Antibiotics) Adverse Reaction (Verified 06/07/17 14:50) Hives Home Medications Medication Instructions Recorded Confirmed Last Taken Type RX: oxyCODONE /ACETAMINOPHEN 1 tab PO Q6H PRN #20 tablet 02/08/14 06/10/1706/03 Rx [Percocet 5/325 mg] RX: Albuterol Sulfate [Ventolin 2 puff IH Q4H PRN #1 hfa.aer.ad 02/24/15 Unknown Rx HFA] RX: Bacitracin Zinc Oint 1 applicatio TP TID #1 tube 02/24/15 06/10/17 05/27/17 Rx RX: Codeine (Nf) 30 mg PO Q4H PRN #15 tablet 06/26/16 06/10/17 06/03/17 Rx RX: Prednisone [predniSONE 10 mg 10 mg PO .TAPER #1 tab.ds.pk 08/22/16 06/10/17 05/27/17 Rx (6-Day Pack, 21 Tabs)] RX: Docusate Sodium [Colace CAP] 100 mg PO BID PRN #30 capsule 02/23/1706/03/17 Rx RX: Naproxen [Naprosyn TAB] 500 mg PO BID PRN #30 tablet 02/23/17 06/10/1706/03 Rx Acetaminophen/Codeine [Tylenol 1 tab PO Q6H PRN 06/10/17 06/10/17 06/03/17 History /Codeine # 3 tab] Ibuprofen [Advil 100 MG tab] 200 mg PO Q6H PRN 06/10/17 06/10/17 06/03/17 History Active Medications Albuterol (Proair) 2 puff IH PREOP NR Stop: 06/10/17 13:00 Last Admin: 06/10/17 08:56 Dose: 2 puff Cefazolin Sodium (Ancef/Sterile Water 2 Gm/20 Ml) 2 gm IV PREOP NR Stop: 06/10/17 13:00 Famotidine (Pepcid) 20 mg IV PREOP NR Stop: 06/10/17 13:00 Last Admin: 06/10/17 08:59 Dose: 20 mg Hydromorphone HCl (Dilaudid) 0.25 mg IV Q1HR PRN PRN Reason: Pain , Severe (7-10) Stop: 06/10/17 16:00 Sodium Chloride (Nacl 0.9% 1000 Ml) 1,000 mls @ 100 mls/hr IV DIRECT ISAIAS Last Admin: 06/10/17 08:58 Dose: 100 mls/hr Oxycodone/Acetaminophen (Percocet 5/325) 1 tab PO ONCE PRN PRN Reason: Pain, Moderate (4-6) Stop: 06/10/17 13:00 - Brief post op/procedure progress note Date of procedure: 06/10/17 Pre-op diagnosis: reducible right inguinal hernia Post-op diagnosis: same Procedure: Laparoscopic right inguinal hernia repair with mesh Anesthesia: GETA, local Findings: Large indirect hernia with chronically incarcerated hernia sac, small direct defect Surgeon: BELINDA HO Estimated blood loss: minimal Pathology: none Condition: stable - Hospital course Hospital course: The patient was recovered in the PACU and discharged home in stable condition once criteria was met. - Disposition Condition at discharge: Good Disposition: DC-01 TO HOME OR SELFCARE - Discharge Diagnoses (1) Reducible right inguinal hernia Status: Acute Short Stay Discharge Plan Activity: other (no heavy lifting greater than 15-20 [address] for 4-[address] while taking narcotic pain medication) Diet: low salt, diabetic Wound: open to air Additional Instructions: Call the surgeon's office if you have fevers greater than 100.4, intractable abdominal pain not controlled by prescription pain medications. You may experience swelling in the right groin, this is expected after surgery. Call surgeon's office if you have any questions. Follow up with: TULIO MOREL NP [Primary Care Provider] - 7 Days BELINDA HO DO [Staff Physician] - 14 Days Prescriptions: oxyCODONE /ACETAMINOPHEN [Percocet 5/325 mg] 1 tab PO Q6H PRN #20 tablet PRN Reason: Moder Pain Unrelieved By [place]
[2017-06-10] MEDS: DILAUDID IV PRN ×2 (12:03→12:12)
--- NOTE | 2017-06-10 13:29 | Post Anesthesia Evaluation ---
- Post Anesthesia Evaluation Patient Participated: Yes Airway Patent: Yes Stable Respiratory Function: Yes Nausea/Vomiting: No Temp > 96.8F: Yes Pain Manageable: Yes Adequeate Hydration: Yes Anesthesia Complications: No
[2017-06-10] MEDS ORDERED: PROVENTIL IH SCH (14:00)
[2017-06-10 16:47] VITALS: BP 108/65
== END 2017-06-10 14:10 | disposition home or self-care (01) ==
LOC: OR 05:56
PROVIDERS: ATTEND Surgery
DX: K40.40 Unilateral inguinal hernia, with gangrene, not specified as recurrent (principal); K21.9 Gastro-esophageal reflux disease without esophagitis; I25.10 Atherosclerotic heart disease of native coronary artery without angina pectoris; D57.3 Sickle-cell trait; M19.90 Unspecified osteoarthritis, unspecified site; G89.29 Other chronic pain; G47.30 Sleep apnea, unspecified; F17.210 Nicotine dependence, cigarettes, uncomplicated; Z88.2 Allergy status to sulfonamides; Z79.899 Other long term (current) drug therapy
CPT/HCPCS: 49650; C1726; C1781; J0690; J1170; J1720; J2370; J2704; J2710; J3010; J7030

== ENCOUNTER 2017-06-17 12:47 | Outpatient (CLI) | payer MEDICARE ==
--- NOTE | 2017-06-17 15:59 | Cat Scan Report ---
FINAL REPORT PROCEDURE: CT ABDOMEN PELVIS WO CON TECHNIQUE: Computerized axial tomography of the abdomen and pelvis was performed without intravenous contrast. This study is performed without intravascular contrast material and its sensitivity for abdominal and pelvic pathology, including neoplasms, inflammation, abscess, free fluid, thrombosis, arterial dissection and infarction, is reduced compared with a contrast enhanced study. HISTORY: LOWER ABDOMINAL PAIN COMPARISON: No prior studies are available for comparison. FINDINGS: Lower Lung pizano: There are bands of increased density adjacent to the left diaphragm laterally. There is some tenting of the left diaphragm. The appearance suggest parenchymal and pleural scarring. Small air cyst visualized in the right lower lobe inferiorly medially measuring approximately 1.3 centimeters. Lung bases otherwise unremarkable. Upper Abdomen: There is a small amount of increased density dependently in the gallbladder seen on image 88 series 3 axial image suggesting small gallstones. Gallbladder is otherwise unremarkable. The liver, adrenal glands, pancreas in the spleen are unremarkable. Kidneys, Ureters and Urinary bladder: No abnormalities are seen. Retroperitoneum: Atherosclerotic changes are seen in the abdominal aorta. No aneurysm is visualized. There are few small bubbles of gas seen in the retroperitoneum in the right upper quadrant superior to the right kidney seen on images 52 series 3 and a few of the adjacent images. These are best visualized with lung windows. There is also a small bubble of gas in the retroperitoneum posterior to the left psoas muscle on image 85 series 3. I do not see free intraperitoneal gas. A small amount of gas is visualized in the anterior abdominal wall lateral to the rectus abdominus muscle on image 85 series 3. There is a small subcutaneous density with a small air bubble to the left of the umbilicus measuring 2.9 x 1.8 centimeters which may represent a recent subcutaneous injection. Nonspecific subcentimeter lymph nodes are seen in the retroperitoneum. No pathologically enlarged lymph nodes are identified. Bowel: Postsurgical changes are seen in the right groin. There is several surgical clips visualized. There is a density seen in the right inguinal canal of uncertain etiology. This measures approximately 4.8 x 3.1 centimeter. This could represent an enlarged lymph node or undescended testicle. Other parenchymal masses cannot be excluded. There are few small bubbles of gas seen in the left groin which is otherwise unremarkable. No evidence of bowel obstruction ascites. Normal-appearing appendix is seen in the right lower quadrant. Reproductive organs: There is nonspecific diffuse prostate enlargement. Other: No acute bony abnormalities are identified. There is advanced facet arthritis visualized at the L3-4 through L5-S1 level. Diffuse disc bulges are visualized the L3-4 and the L4-5 level as well as ligamentum flavum laxity and facet arthritis. There appears to be at least mild spinal stenosis at both levels. This is greater at L3-4. There is vacuum disc phenomena and diffuse disc bulge at the L5-S1 level without spinal stenosis. IMPRESSION: Cholelithiasis. Small bubbles of gas collected in the retroperitoneum as described in detail above. Etiology is uncertain. There also bubbles of gas seen in the left groin. Small bubbles of gas are seen in the anterior abdominal wall to the right of the rectus abdominus muscle. The source of the bubbles of gas is not clearly visualized. Perforated viscus such as small perforation in the duodenum could present in this manner. No abscess is visualized. No free intraperitoneal gas is seen. Correlation with any recent interventional procedure history is recommended as well as the bubbles of gas could be related to recent procedure not identified in the patient's clinical history. Postsurgical changes visualize right groin. Numerous surgical clips are visualized. Subcutaneous density with small air bubble to the left of the umbilicus may represent recent subcutaneous injection. Oval soft tissue density right inguinal canal may represent an undescended testicle, enlarged lymph node or other mass. Correlation with physical exam is recommended. Degenerative disc disease lumbar spine. Please see above comments. No acute bony abnormality is seen..
--- NOTE | 2017-06-17 20:44 | Event Note ---
Date: 06/17/17 06/17/17 I saw the patient in the office today. He is s/p laparoscopic preperitoneal right inguinal hernia repair with mesh on 06/10/17 and he c/o discomfort near his umbilical incision and right groin. These areas have soft bulges which felt like fluid on exam. The patient's vital signs were stable and he has been tolerating a regular diet without n/v or abdominal pain, c/d. He did have constipation following the surgery and admitted to straining to have a BM. The bulges appeared after this. I sent the patient for a CT A/P to evaluate the bulge at his umbilical incision and right groin to r/o seroma vs hematoma vs recurrence. 6:17pm: [facility] and I personally reviewed the CT imaging and discussed the findings with the radiologist who read the study. We discussed the history of the patient and the type of surgery he had in detail after the reading of the CT was completed. There were multiple findings described including 1. cholelithiasis 2. small bubbles of gas in the retroperitoneum and left groin, anterior abdominal wall to the right of the rectus abdominus muscle. No abscess or free air. 3. post surgical changes in right groin 4. subcutaneous density with small air bubble to the left of the umbilicus 5. oval soft tissue denity right inguinal canal Based on the patient's recent surgical history and physical exam today the findings in the right groin and near the umbilicus are most likely seroma/ hematoma. In addition, the remaining findings are most likely related to post surgical changes secondary to insufflation and dissection of the preperitoneal space during the hernia repair. I do not have clinical concerns for perforation based on my discussion with the patient and exam today. 7:50 pm: I called the patient and discussed the results of the CT scan. He states he is feeling ok and does not have any additional complaints. I explained to him that if he has any new symptoms, n/v, f/c, abd pain, or any concerns that he should call the office at [phone], to get in touch with me. Otherwise, he will follow up with me on Tuesday 06/20 @10am in the office. He understands. I reviewed the patient's surgical history, discussed the findings of the CT and the plan with my partner Dr. Saez. He is in agreement of the plan. In addition, I called the office answering service to determine why I was not notified of the calls placed to me by [facility]. It was determined that the call back number paged to me was incorrect. This was immediately corrected. Dr. Elias was notified in the ER of the radiology read prior to my discussion with the radiologist. I notified Dr. Elias that I would call the patient and follow up.
== END 2017-06-17 12:48 | disposition home or self-care (01) ==
LOC: CT 12:47
PROVIDERS: ATTEND Surgery
DX: K80.20 Calculus of gallbladder without cholecystitis without obstruction (principal); N40.0 Benign prostatic hyperplasia without lower urinary tract symptoms; M48.061 Spinal stenosis, lumbar region without neurogenic claudication; I70.0 Atherosclerosis of aorta; M51.36 Other intervertebral disc degeneration, lumbar region; J98.4 Other disorders of lung
CPT/HCPCS: 74176

== ENCOUNTER 2018-02-16 02:30 | Emergency (ER) | payer MEDICARE ==
[2018-02-16] MEDS ORDERED: ASPIRIN PO ONE (02:53)
[2018-02-16 03:21] LABS: Basophils % (Auto) 0.8 % (0.0-1.8); Eosinophils # (Auto) 0.3 K/mm3 (0.0-0.4); Eosinophils % (Auto) 6.5 % (0.0-4.3); Hematocrit 37.9 % (35.5-45.6); Hemoglobin 12.9 gm/dl (11.8-15.2); Lymphocytes # (Auto) 1.3 K/mm3 (1.2-5.4); Lymphocytes % (Auto) 33.2 % (13.4-35.0); Mean Corpuscular HGB Conc 34 % (32-34); Mean Corpuscular Hemoglobin 33 pg (28-32); Mean Corpuscular Volume 97 fl (84-94); Monocytes # (Auto) 0.6 K/mm3 (0.0-0.8); Monocytes % (Auto) 15.5 % (0.0-7.3); Platelet Count 121 K/mm3 (140-440); Red Blood Count 3.92 M/mm3 (3.65-5.03); Red Cell Distribution Width 13.6 % (13.2-15.2)
[2018-02-16 03:31] LABS: BUN/Creatinine Ratio 12; Blood Urea Nitrogen 11 mg/dL (9-20); Calcium 9.2 mg/dL (8.4-10.2); Hemolysis Index 33
--- NOTE | 2018-02-16 04:02 | Emergency Department Report ---
ED Chest Pain HPI - General Chief Complaint: Chest Pain Stated Complaint: CHEST PAIN Time Seen by Provider: 02/16/18 03:55 Source: patient Mode of arrival: Ambulatory Limitations: No Limitations - History of Present Illness Initial Comments: 67-year-old male with report of chest pain 2 days. States feels like something is in his chest. Reports nausea and vomiting. Patient reports EtOH and drug use yesterday. When asked which drugs patient states "marijuana, unless someone put something else it." Denies shortness of breath. Reports nonproductive cough MD Complaint: chest pain -: days(s) (1) Onset: during rest Pain Location: left chest, right chest Pain Radiation: none Severity: moderate Severity scale (0 -10): 0 Quality: tightness Consistency: intermittent Improves With: nothing Worsens With: nothing re: nausea, vomting. denies: dyspnea Other Symptoms: cough. denies: fever - Related Data Home Medications Medication Instructions Recorded Confirmed Last Taken Ibuprofen [Advil 100 MG tab] 200 mg PO Q6H PRN 06/10/17 06/10/17 06/03/17 Previous Rx's Medication Instructions Recorded Last Taken Type Albuterol Sulfate [Ventolin HFA] 2 puff IH Q4H PRN #1 hfa.aer.ad 02/24/15 Unknown Rx Bacitracin Zinc Oint 1 applicatio TP TID #1 tube 02/24/15 05/27/17 Rx Codeine (Nf) 30 mg PO Q4H PRN #15 tablet 06/26/16 06/03/17 Rx Prednisone [predniSONE 10 mg 10 mg PO .TAPER #1 tab.ds.pk 08/22/16 05/27/17 Rx (6-Day Pack, 21 Tabs)] Docusate Sodium [Colace CAP] 100 mg PO BID PRN #30 capsule 02/23/17 06/03/17 Rx Naproxen [Naprosyn TAB] 500 mg PO BID PRN #30 tablet 02/23/17 06/03/17 Rx oxyCODONE /ACETAMINOPHEN [Percocet 1 tab PO Q6H PRN #20 tablet 06/10/17 Unknown Rx 5/325 mg] Famotidine [Pepcid] 20 mg PO DAILY #30 tablet 02/16/18 Unknown Rx Ondansetron [Zofran Odt] 4 mg PO Q8HR PRN #20 tab.rapdis 02/16/18 Unknown Rx Allergies Allergy/AdvReac Type Severity Reaction Status Date / Time Sulfa (Sulfonamide AdvReac Hives Verified 06/07/17 14:50 Antibiotics) Heart Score - HEART Score History: Slightly suspicious EKG: Normal Age: > 65 Risk factors: 1-2 risk factors Troponin: < normal limit HEART Score: 3 - Critical Actions Critical Actions: 0-3 pts:0.9-1.7%risk of adverse cardiac event.Candidate for discharge ED Review of Systems ROS: Stated complaint: CHEST PAIN Other details as noted in HPI Comment: All other systems reviewed and negative Constitutional: denies: chills, fever Respiratory: cough. denies: shortness of breath Cardiovascular: chest pain ED Past Medical Hx - Past Medical History Previous Medical History?: Yes Hx Sickle Cell Disease: Yes (TRAIT) Hx Arthritis: Yes Hx HIV: No Additional medical history: "heart valve", various veins, bodyaches, CAD - Surgical History Past Surgical History?: Yes Additional Surgical History: angioplasty - Social History Smoking Status: Current Every Day Smoker Substance Use Type: Alcohol - Medications Home Medications: Home Medications Medication Instructions Recorded Confirmed Last Taken Type Albuterol Sulfate [Ventolin HFA] 2 puff IH Q4H PRN #1 hfa.aer.ad 02/24/15 Unknown Rx Bacitracin Zinc Oint 1 applicatio TP TID #1 tube 02/24/15 06/10/17 05/27/17 Rx Codeine (Nf) 30 mg PO Q4H PRN #15 tablet 06/26/16 06/10/17 06/03/17 Rx Prednisone [predniSONE 10 mg 10 mg PO .TAPER #1 tab.ds.pk 08/22/16 06/10/1710/07 Rx (6-Day Pack, 21 Tabs)] Docusate Sodium [Colace CAP] 100 mg PO BID PRN #30 capsule 02/23/17 06/10/1705/09 Rx Naproxen [Naprosyn TAB] 500 mg PO BID PRN #30 tablet 02/23/17 06/10/17 06/03/17 Rx Ibuprofen [Advil 100 MG tab] 200 mg PO Q6H PRN 06/10/17 06/10/17 06/03/17 History oxyCODONE /ACETAMINOPHEN [Percocet 1 tab PO Q6H PRN #20 tablet 06/10/17 Unknown Rx 5/325 mg] Famotidine [Pepcid] 20 mg PO DAILY #30 tablet 02/16/18 Unknown Rx Ondansetron [Zofran Odt] 4 mg PO Q8HR PRN #20 tab.rapdis 02/16/18 Unknown Rx ED Physical Exam - General Limitations: No Limitations General appearance: alert, in no apparent distress - Head Head exam: Present: atraumatic, normocephalic - Eye Eye exam: Present: normal appearance, PERRL, EOMI - ENT ENT exam: Present: mucous membranes moist - Neck Neck exam: Present: normal inspection - Respiratory Respiratory exam: Present: normal lung sounds bilaterally. Absent: respiratory distress - Cardiovascular Cardiovascular Exam: Present: regular rate, normal rhythm - GI/Abdominal GI/Abdominal exam: Present: soft. Absent: tenderness - Extremities Exam Extremities exam: Present: other (chronic appearing changes skin of left lower leg, trace edema present) - Neurological Exam Neurological exam: Present: alert, oriented X3 - Psychiatric Psychiatric exam: Present: normal affect, normal mood - Skin Skin exam: Present: warm, dry ED Course Vital Signs 02/16/18 02/16/18 02/16/18 02:50 03:45 04:00 Temperature 99.4 F 98 F Pulse Rate 78 64 88 Respiratory 18 16 22 Rate Blood Pressure 93/54 101/67 Blood Pressure 112/56 [Left] O2 Sat by Pulse 96 85 99 Oximetry 02/16/18 05:00 Temperature Pulse Rate 76 Respiratory 14 Rate Blood Pressure 103/59 Blood Pressure [Left] O2 Sat by Pulse 97 Oximetry MIGUELITO score - Miguelito Score Age > 65: (0) No Aspirin use within the Past 7 Days: (0) No 3 or more CAD Risk Factors: (0) No 2 or more Angina events in past 24 hrs: (0) No Known CAD with more than 50% Stenosis: (0) No Elevated Cardiac Markers: (0) No ST Deviation Greater than 0.5mm: (0) No MIGUELITO Score: 0 ED Medical Decision Making - Lab Data Result diagrams: 02/16/18 02:56 02/16/18 Unknown - EKG Data -: EKG Interpreted by Tn EKG shows normal: sinus rhythm, axis, intervals, QRS complexes, ST-T waves Rate: normal - EKG Data Interpretation: no acute changes, normal EKG - Radiology Data Radiology results: report reviewed, image reviewed - Medical Decision Making 67-year-old male or chest pain since yesterday. States that it is all across chest associated with multiple episodes of nausea, vomiting. Patient does report recent EtOH use. Lipase normal. EKG and troponin normal x 2. Chest x- ray shows no acute findings. Patient on acute distress, on a stretcher. No episodes of emesis here in ED. Chest pain free at this time. Drug screen positive for cocaine. Patient will be given prescription for antinausea medication as well as follow-up with PCP Dr. Kaminski - Differential Diagnosis ACS, pancreatitis, gastritis Critical care attestation.: If time is entered above; I have spent that time in minutes in the direct care of this critically ill patient, excluding procedure time. ED Disposition Clinical Impression: Chest pain, Gastritis Disposition: DC-01 TO HOME OR SELFCARE Is pt being admited?: No Condition: Stable Instructions: Chest Pain (ED), Gastritis (ED) Prescriptions: Famotidine [Pepcid] 20 mg PO DAILY #30 tablet Ondansetron [Zofran Odt] 4 mg PO Q8HR PRN #20 tab.rapdis PRN Reason: Nausea Referrals: PRIMARY CARE,MD [Primary Care Provider] - 3-5 Days Time of Disposition: 06:07
--- NOTE | 2018-02-16 04:30 | XRay Report ---
FINAL REPORT EXAM: XR CHEST 1V AP HISTORY: chest pain TECHNIQUE: A portable view of the chest was submitted. There are no previous studies available for comparison. FINDINGS: The heart size and vascularity appear normal. The lungs are clear. The right costophrenic angle is cut off the film. Pleural fluid is not seen. The skeletal structures reveal disc degeneration in the dorsal spine. IMPRESSION: No acute cardiopulmonary process.
[2018-02-16 05:03] LABS: Alanine Aminotransferase 47 units/L (7-56); Albumin 3.9 g/dL (3.9-5); Lipase 74 units/L (13-60)
[2018-02-16 05:04] LABS: Bilirubin,Direct < 0.2 mg/dL (0-0.2)
[2018-02-16 05:32] VITALS: BP 103/59
[2018-02-16 06:29] LABS: Amphetamine Screen,Urine PRESUMPTIVE NEGATIVE; Benzodiazepines Screen,Urine PRESUMPTIVE NEGATIVE; Methadone Screen,Urine PRESUMPTIVE NEGATIVE; Opiate Screen,Urine PRESUMPTIVE NEGATIVE
[2018-02-16 07:11] LABS: Cannabinoid Screen,Urine PRESUMPTIVE POSITIVE; Cocaine Screen,Urine PRESUMPTIVE POSITIVE
== END 2018-02-16 06:36 | disposition home or self-care (01) ==
LOC: ED 02:30
DX: K29.60 Other gastritis without bleeding (principal); R07.89 Other chest pain; M19.90 Unspecified osteoarthritis, unspecified site; F17.200 Nicotine dependence, unspecified, uncomplicated; Z88.1 Allergy status to other antibiotic agents
CPT/HCPCS: 36415; 71045; 80048; 80074; 80307; 83690; 84484; 85025; 93005; 93010; 99284; G0480; 80320